=== PATIENT | male | born 1985 | race Caucasian/White ===

== ENCOUNTER 2019-01-13 02:50 | Emergency (ER) | payer MEDICAID ==
[2019-01-13] MEDS ORDERED: LORazepam 2 MG/ML SDV IVPUSH ONE ×2 (03:27→04:58)
--- NOTE | 2019-01-13 03:32 | EDM.PDOC ---
ED HPI GENERAL MEDICAL PROBLEM - General Chief Complaint: General Stated Complaint: Suicide ideations Time Seen by Provider: 01/13/19 03:23 Source of Information: Reports: Patient History Limitations: Reports: Uncooperative - History of Present Illness INITIAL COMMENTS - FREE TEXT/NARRATIVE: Patient is a 33-year-old gentleman who presents to the emergency department via [place] [facility] and [facility] department secondary to homicidal and suicidal ideation. [place] [facility] decided to transport patient to [place] because patient said that he didn't like the doctor in [place]. Per transit authority police officer, patient was threatening to his , and she was terrified, and when the transit authority police officer arrived threatened to kill himself on police video. Patient then became physical with transit authority police officer, who ended up hand cuffing the patient. At that point, the patient repeatedly banged head against the floor, and also attempted to cut wrists with handcuffs. Patient was transported to ER. Patient states that he takes multiple medications and ran out of his medications 2 days ago. Patient is currently seen in a psych facility in [place]. At this time, patient is acting extremely agitated, combative, and was refusing to discuss. Onset: Today Onset Time: 01:30 Duration: Hour(s): Location: Reports: Head, Upper Extremity, Left, Upper Extremity, Right Quality: Reports: Ache Severity: Mild Improves with: Reports: None Worsens with: Reports: None Associated Symptoms: Reports: No Other Symptoms - Related Data Allergies Allergy/AdvReac Type Severity Reaction Status Date / Time No Known Drug Allergies Allergy Other Verified 01/13/19 03:10 Home Meds: Home Meds ARIPiprazole [Abilify] 30 mg PO DAILY 01/13/19 [History] Dexmethylphenidate HCl [Dexmethylphenidate] 40 mg PO DAILY 01/13/19 [History] LORazepam [Ativan] 2 mg PO QID 01/13/19 [History] Methylphenidate HCl [Ritalin] 40 mg PO TID 01/13/19 [History] ED ROS GENERAL - Review of Systems Review Of Systems: ROS reveals no pertinent complaints other than HPI. Constitutional: Reports: No Symptoms HEENT: Reports: No Symptoms Respiratory: Reports: No Symptoms Cardiovascular: Reports: No Symptoms Endocrine: Reports: No Symptoms GI/Abdominal: Reports: No Symptoms : Reports: No Symptoms Musculoskeletal: Reports: No Symptoms Skin: Reports: Bruising Neurological: Reports: No Symptoms Psychiatric: Reports: Agitation, Homicidal Ideation, Suicidal Ideation Hematologic/Lymphatic: Reports: No Symptoms Immunologic: Reports: No Symptoms ED EXAM, GENERAL - Physical Exam Exam: See Below Exam Limited By: Combative/Threatening General Appearance: Alert, WD/WN, Anxious Eye Exam: Bilateral Eye: Normal Inspection Nose: Normal Inspection, No Blood Throat/Mouth: Normal Inspection, Normal Oropharynx, No Airway Compromise Head: Other (Forehead abrasion without ecchymosis, edema, or laceration.) Neck: Normal Inspection, Supple, Non-Tender, Full Range of Motion Respiratory/Chest: No Respiratory Distress, Lungs Clear, Normal Breath Sounds, No Accessory Muscle Use, Chest Non-Tender Cardiovascular: Regular Rate, Rhythm, No Murmur GI/Abdominal: Normal Bowel Sounds, Soft, Non-Tender, Pelvis Stable Back Exam: Normal Inspection, Full Range of Motion Extremities: Normal Inspection Neurological: Alert, Oriented, Normal Cognition Psychiatric: Anxious Skin Exam: Warm, Dry, Normal Color, No Rash, Other (Abrasions to left forehead, left wrist. No laceration, ecchymosis, or edema noted.) Course - Vital Signs Last Recorded V/S: Last Vital Signs Temp 98.9 F 01/13/19 03:31 Pulse 88 01/13/19 03:52 Resp 20 01/13/19 03:52 BP 120/58 L 01/13/19 03:52 Pulse Ox 96 01/13/19 03:52 - Orders/Labs/Meds Orders: Active Orders 24 hr Category Date Time Status Peripheral IV Care [RC] . DIRECTED Care 01/13/19 03:24 Ordered Sodium Chloride 0.9% [Saline Flush] Med 01/13/19 03:24 Ordered 10 ml FLUSH Q8HR PRN Peripheral IV Insertion Adult [OM.PC] Routine Oth 01/13/19 03:24 Ordered Medication Orders Sodium Chloride (Saline Flush) 10 ml FLUSH Q8HR PRN PRN Reason: keep vein open Last Admin: 01/13/19 05:17 Dose: 10 ml Admin: 01/13/19 04:17 Dose: 10 ml Labs: Laboratory Tests 01/13/19 01/13/19 01/13/19 Range/Units 03:05 03:25 03:25 WBC 10.69 H (5.00-10.00) 10^3/uL RBC 4.33 L (4.50-6.00) 10^6/uL Hgb 14.2 (13.0-17.0) g/dL Hct 40.2 (40.0-52.0) % MCV 92.8 H (82.0-92.0) fL MCH 32.8 H (27.0-31.0) pg MCHC 35.3 (32.0-36.0) g/dL RDW 11.5 (11.5-14.5) % Plt Count 306 (150-400) 10^3/uL MPV 10.0 (7.4-10.4) fL Immature Gran % (Auto) 0.7 (0.0-5.0) % Neut % (Auto) 77.9 H (50.0-70.0) % Lymph % (Auto) 13.4 L (20.0-40.0) % [place] % (Auto) 6.4 (2.0-8.0) % Eos % (Auto) 1.1 (1.0-3.0) % Baso % (Auto) 0.5 (0.0-1.0) % Immature Gran # (Auto) 0.08 (0.00-0.50) 10^3/uL Neut # (Auto) 8.33 H (2.50-7.00) 10^3/uL Lymph # (Auto) 1.43 (1.00-4.00) 10^3/uL [place] # (Auto) 0.68 (0.10-0.80) 10^3/uL Eos # (Auto) 0.12 (0.10-0.30) 10^3/uL Baso # (Auto) 0.05 (0.00-0.10) 10^3/uL Sodium 146 H (136-145) mmol/L Potassium 3.6 (3.3-5.3) mmol/L Chloride 108 (98-115) mmol/L Carbon Dioxide 23.4 (21.0-32.0) mmol/L Anion Gap 18.2 H (5-15) mmol/L BUN 10 (6-25) mg/dL Creatinine 0.83 (0.51-1.17) mg/dL Est Cr Clr Drug Dosing 132.37 mL/min Estimated GFR (MDRD) > 60 mL/min Glucose 89 (75 - 99) mg/dL Calcium 9.1 (8.7-10.3) mg/dL Total Bilirubin 0.3 (0.2-1.0) mg/dL AST 14 L (15-37) U/L ALT 17 (12-78) U/L Alkaline Phosphatase 65 (46-116) IU/L Total Protein 6.6 (6.4-8.2) g/dL Albumin 3.76 (3.00-4.80) g/dL Urine Opiates Screen Negative (NEGATIVE) Ur Oxycodone Screen Negative (NEGATIVE) Urine Methadone Screen Negative (NEGATIVE) Ur Propoxyphene Screen Negative (NEGATIVE) Ur Barbiturates Screen Negative (NEGATIVE) Ur Tricyclics Screen Negative (NEGATIVE) Ur Phencyclidine Scrn Negative (NEGATIVE) Ur Amphetamine Screen Negative (NEGATIVE) U Methamphetamines Scrn Negative (NEGATIVE) U Benzodiazepines Scrn Positive H (NEGATIVE) U Cocaine Metab Screen Negative (NEGATIVE) U Marijuana (THC) Screen Negative (NEGATIVE) Ethyl Alcohol < 3 (NONE DETECTED) mg/dL Meds: Medications Generic Name Dose Route Start Last Admin Trade Name Freq PRN Reason Stop Dose Admin Sodium Chloride 10 ml 01/13/19 03:24 01/13/19 05:17 Saline Flush FLUSH 10 ml Q8HR PRN Administration keep vein open Discontinued Medications Generic Name Dose Route Start Last Admin Trade Name Freq PRN Reason Stop Dose Admin Lorazepam 1 mg 01/13/19 03:27 01/13/19 04:15 Ativan IVPUSH 01/13/19 03:28 1 mg ONETIME ONE Administration Lorazepam 2 mg 01/13/19 04:58 01/13/19 05:15 Ativan IVPUSH 01/13/19 04:59 2 mg ONETIME ONE Administration Lorazepam Confirm 01/13/19 05:00 01/13/19 05:22 Ativan Administered 01/13/19 05:01 Not Given Dose 2 mg .ROUTE .STK-MED ONE Nicotine 21 mg 01/13/19 04:24 01/13/19 04:29 Habitrol TRDERM 01/13/19 04:25 21 mg ONETIME ONE Administration - Re-Assessments/Exams Free Text/Narrative Re-Assessment/Exam: 08/03/19 05:14 Patient was cleared medically for transport. Patient remains combative and resistant. [facility] was contacted but they had no available beds. [facility] was contacted and case discussed with ana lilia Bowers. After extensive evaluation and denial for transfer by Elissa because the patient refused to speak to her, I was finally able to speak to the resident psychiatrist, who ultimately accepted the patient. Patient will be transported via ground ambulance with police escort. Departure - Departure Time of Disposition: 05:18 Disposition: DC/Tfer to Psych Hosp/Unit 65 Condition: Serious Clinical Impression: Suicidal ideation, Homicidal ideation - Discharge Information Forms: ED Department Discharge, Interfacility Transfer EMTALA - My Orders Last 24 Hours: My Active Orders 01/13/19 03:24 Peripheral IV Care [RC] . DIRECTED Sodium Chloride 0.9% [Saline Flush] 10 ml FLUSH Q8HR PRN Peripheral IV Insertion Adult [OM.PC] Routine - Assessment/Plan Last 24 Hours: My Active Orders 01/13/19 03:24 Peripheral IV Care [RC] . DIRECTED Sodium Chloride 0.9% [Saline Flush] 10 ml FLUSH Q8HR PRN Peripheral IV Insertion Adult [OM.PC] Routine Assessment:: Suicidal ideation Plan: Transfer to [facility]
[2019-01-13 03:48] LABS: BENZODIAZEPINES SCREEN,URINE POSITIVE (NEGATIVE)
[2019-01-13 03:49] LABS: BARBITURATE SCREEN,URINE NEGATIVE (NEGATIVE); TCA SCREEN,URINE NEGATIVE (NEGATIVE); THC SCREEN,URINE 50 NG/ML NEGATIVE (NEGATIVE)
[2019-01-13 03:52] LABS: ANION GAP 18.2 mmol/L (5-15); CHLORIDE,CL 108 mmol/L (98-115); SODIUM,NA 146 mmol/L (136-145)
[2019-01-13] MEDS: Sodium Chloride 0.9% 10 ML Syringe FLUSH PRN ×2 (04:17→05:17)
[2019-01-13] MEDS ORDERED: Nicotine 21 MG/24 Hr Patch TRDERM ONE (04:24)
[2019-01-13] MEDS ORDERED: LORazepam 2 MG/ML SDV ONE (05:00)
[2019-01-13 06:30] VITALS: BP 126/74; PULSE 92
== END 2019-01-13 05:50 ==
LOC: MERGE 02:50 → KA.ED 02:50
DX: S00.81XA Abrasion of other part of head, initial encounter (principal); S60.812A Abrasion of left wrist, initial encounter; R45.851 Suicidal ideations; R45.850 Homicidal ideations; Z79.899 Other long term (current) drug therapy; X83.8XXA Intentional self-harm by other specified means, initial encounter
CPT/HCPCS: 36415; 80053; 80305; 85025; 96374; 96376; 99285; A9270; G0480; J2060